=== PATIENT | female | born 1950 | race Asian ===

== ENCOUNTER 2020-02-03 13:06 | Emergency (ER) | payer MEDICARE ==
[~2020-02-03] VITALS: Ht 154.9 cm; Wt 59.0 kg
[2020-02-03 13:13] VITALS: BP 138/106
--- NOTE | 2020-02-03 13:13 | NUR ---
ED Nurse Note: pt brought in by son in law in to ED stating she went to accupuncture this morning and was told she had S/Sx of stroke and needs to go ED at 0900. pt noted with left sided facial droop. bilateral hand service learning coordinator (=). pt ambulatory. IV line established. pt connected to monitor. ermd at bedside
--- NOTE | 2020-02-03 13:15 | NUR ---
ED Nurse Note: PT taken to CT
--- NOTE | 2020-02-03 13:21 | Emergency Room Report ---
History of Present Illness General Chief Complaint: Stroke Symptoms Source: Patient, Family Member Present Illness HPI Disclaimer: Please note that this report is being documented using [employer] technology. This can lead to erroneous entry secondary to incorrect interpretation by the dictating instrument. HPI: 69-year-old female with no reported medical history resents for evaluation of weakness, facial droop concern for possible stroke. She awoke in her usual state of health this morning. Approximately 8 PM her son states that she fell without head injury or loss of consciousness. She was complaining of weakness on the left side of her body particularly left upper extremity. She was found to have facial droop and some slurred speech at that time. She denied any vision changes, headache, neck or back pain, chest pain, palpitations, nausea, vomiting, fever, chills recently. No history of hypertension, hyperlipidemia or CAD. States that the strength is returning to her lower extremities and upper extremity. Denies numbness or tingling. Facial droop persist. PMH: Denies PSH: Denies Allergies: Denies Social Hx: Denies Allergies: Coded Allergies: No Known Allergies (Unverified , 02/03/20) Patient History Last Menstrual Period: na Nursing Documentation-PMH Past Medical History: No Stated History Review of Systems All Other Systems: negative except mentioned in HPI Physical Exam Vital Signs Date Time Temp Pulse Resp B/P (MAP) Pulse Ox O2 Delivery O2 Flow Rate FiO2 02/03/20 13:11 98.1 156 21 138/106 (117) 98 Room Air General: Awake and alert, no acute distress HEENT: NC/AT. EOMI. PERRLA. Visual turk are full. No nystagmus. Significant facial droop on the left. Cardiovascular: Tachycardic with irregular regular rhythm. S1 and S2 normal. No murmur appreciated Resp: Normal work of breathing. No cough, wheezing or crackles appreciated Abdomen: Abdomen is soft, nondistended. Nontender Skin: Intact. No abrasions, laceration or rash over the exposed skin MSK: Normal tone and bulk. Moving all extremities. No obvious deformity. There is no drift in the upper or lower extremities bilaterally. Decreased manager software development strength in the left upper extremity. Neuro: Awake and alert. Mentating appropriately. Facial expression symmetrical. No dysarthria, no ataxia on [id number] or [id number] testing. Sensation to light touch is intact over the upper and lower extremities. The patient has intact speech with good repetition, comprehension. Fund of knowledge is full. No aphasia, no neglect. NIH: 2 Procedures Critical Care Time Critical Care Time Total critical care time: Approximately 65 minutes Due to a high probability of clinically significant, life threatening deterioration, the patient required the highest level of preparedness to intervene emergently and I personally spent this critical care time directly and personally managing the patient. This critical care time included obtaining a history, examining the patient, pulse oximetry, ordering and reviewing studies , ordering treatments, evaluating response to treatment and updating management plan as needed, frequent reassessment and discussion with other providers as well as arranging for ultimate disposition. This critical to care time was performed to assess and manage the high probability of life-threatening deterioration that could result in multiorgan failure. This critical care time is separate from the separately billable procedures and treating other patients. Medical Decision Making Diagnostic Impression: Primary Impression: CVA (cerebral vascular accident) Additional Impressions: Facial droop Rapid atrial fibrillation ER Course 69-year-old female presents for evaluation of left-sided weakness, facial droop and a fall earlier today. Concern for CVA at this time. She arrives with a night warehouse manager to those she has decreased manager software development strength in left upper extremity. Last known normal was 8 AM. She is outside the window for TPA. She also arrives with an irregular rhythm and rapid heart rate concerning for rapid atrial fibrillation. She has no history of this. Will send for stat CT, draw broad labs, EKG and arrange for admission. Laboratory Tests Test 02/03/20 13:17 White Blood Count 6.3 K/UL (4.8-10.8) Red Blood Count 4.23 M/UL (4.20-5.40) Hemoglobin 14.2 G/DL (12.0-16.0) Hematocrit 40.5 % (37.0-47.0) Mean Corpuscular Volume 96 FL (80-99) Mean Corpuscular Hemoglobin 33.7 PG (27.0-31.0) H Mean Corpuscular Hemoglobin Concent 35.2 G/DL (32.0-36.0) Red Cell Distribution Width 10.5 % (11.6-14.8) L Platelet Count 175 K/UL (150-450) Mean Platelet Volume 5.2 FL (6.5-10.1) L Neutrophils (%) (Auto) 69.8 % (45.0-75.0) Lymphocytes (%) (Auto) 23.5 % (20.0-45.0) Monocytes (%) (Auto) 5.5 % (1.0-10.0) Eosinophils (%) (Auto) 0.2 % (0.0-3.0) Basophils (%) (Auto) 0.9 % (0.0-2.0) Prothrombin Time 9.8 SEC (9.30-11.50) Prothrombin Time INR 0.9 (0.9-1.1) Activated Partial Thromboplast Time 26 SEC (23-33) Sodium Level 142 MMOL/L (136-145) Potassium Level 4.3 MMOL/L (3.5-5.1) Chloride Level 108 MMOL/L (98-107) H Carbon Dioxide Level 24 MMOL/L (21-32) Anion Gap 10 mmol/L (5-15) Blood Urea Nitrogen 19 mg/dL (7-18) H Creatinine 0.8 MG/DL (0.55-1.30) Estimate Glomerular Filtration Rate > 60 mL/min (>60) Glucose Level 105 MG/DL (74-106) Calcium Level 9.4 MG/DL (8.5-10.1) Total Bilirubin 0.6 MG/DL (0.2-1.0) Aspartate Amino Transferase (AST) 24 U/L (15-37) Alanine Aminotransferase (ALT) 22 U/L (12-78) Alkaline Phosphatase 99 U/L (46-116) Troponin I 0.000 ng/mL (0.000-0.056) Total Protein 8.0 G/DL (6.4-8.2) Albumin 3.6 G/DL (3.4-5.0) Globulin 4.4 g/dL Albumin/Globulin Ratio 0.8 (1.0-2.7) L Triglycerides Level 62 MG/DL (30-150) Cholesterol Level 239 MG/DL (< 200) H LDL Cholesterol 129 mg/dL (<100) H HDL Cholesterol 92 MG/DL (40-60) H Cholesterol/HDL Ratio 2.6 (3.3-4.4) L EKG Diagnostic Results EKG Time: 13:30 Rate: tachycardiac Other Impression Tachycardia with irregularly irregular rhythm concerning for atrial fibrillation. Normal axis. Rhythm Strip Diag. Results Rhythm Strip Time: 13:30 EP Interpretation: yes Rate: 160s CT/MRI/US Diagnostic Results CT/MRI/US Diagnostic Results : Impression Final Report EXAM: CT Head Without Intravenous Contrast CLINICAL HISTORY: CVA TECHNIQUE: Axial computed tomography images of the head/brain without intravenous contrast. CTDI is 53.4 mGy and DLP is 212 mGy-cm. One or more of the following dose reduction techniques were used: automated exposure control, adjustment of the mA and/or kV according to patient size, use of iterative reconstruction technique. COMPARISON: No relevant prior studies available. FINDINGS: Brain: No intracranial hemorrhage. Edematous/ischemic changes in the right basal ganglia, head of caudate and insular cortex. Ventricles: No ventriculomegaly. Bones/joints: No acute fracture. Soft tissues: Unremarkable. Vasculature: Dense segment of the right MCA in the sylvian fissure area suggesting thrombosis. Sinuses: No acute sinusitis. Mastoid air cells: No mastoid effusion. IMPRESSION: 1. Dense segment of the right MCA in the sylvian fissure area suggesting thrombosis. Edematous/ischemic changes in the right basal ganglia, head of caudate and insular cortex. 2. No intracranial hemorrhage. Radiologist: Michelle Victor M.D. Electronically Signed: 02/03/20 13:35 Study ready at 13:29 and initial results transmitted at 13:35 Communications: Clear Time Type Notes 02/03/20 13:39 Verify Receipt Verified receipt with Alisia FOLEY given to Peter TREJO on 02/02 13:39 (-08:00) Reevaluation Time: 13:53 Last Vital Signs Date Time Temp Pulse Resp B/P (MAP) Pulse Ox O2 Delivery O2 Flow Rate FiO2 02/03/20 13:11 98.1 156 21 138/106 (117) 98 Room Air Status: improved Reevaluation Impression Patient was given Cardizem with resolution of the tachycardia though remains in atrial fibrillation. Patient now states that she has been feeling palpitations intermittently for some time now. CT scan of the head concerning for acute stroke in the right MCA distribution with ischemic and edematous changes. While the patient is out of the window for TPA I discussed with [facility], Dr Bulic. Patient a candidate for endovascular procedure and/ or a tenecteplase trial. For this reason I am not giving aspirin. They are discussing with patient's son regarding consent over these procedures. Transfer team sent. Stable condition for transfer. Disposition: XFER SHT-TRM HOSP Condition: Serious Jas Green MD Feb 03, 2020 13:21
[2020-02-03 13:30] LABS: BASOPHILS % (AUTO) 0.9 % (0.0-2.0); EOSINOPHILS % (AUTO) 0.2 % (0.0-3.0); HEMATOCRIT 40.5 % (37.0-47.0); HEMOGLOBIN 14.2 G/DL (12.0-16.0); LYMPHOCYTES % (AUTO) 23.5 % (20.0-45.0); MEAN CORPUSCULAR VOLUME 96 FL (80-99); MONOCYTES % (AUTO) 5.5 % (1.0-10.0); NEUTROPHILS % (AUTO) 69.8 % (45.0-75.0); PLATELET COUNT 175 K/UL (150-450); RED BLOOD COUNT 4.23 M/UL (4.20-5.40); RED CELL DISTRIBUTION WIDTH 10.5 % (11.6-14.8); WHITE BLOOD COUNT 6.3 K/UL (4.8-10.8)
--- NOTE | 2020-02-03 13:30 | NUR ---
ED Nurse Note: Back from CT
[2020-02-03 13:36] LABS: INR 0.9 (0.9-1.1)
--- NOTE | 2020-02-03 13:36 | Diagnostic Imaging Report ---
EXAM: CT Head Without Intravenous Contrast CLINICAL HISTORY: CVA TECHNIQUE: Axial computed tomography images of the head/brain without intravenous contrast. CTDI is 53.4 mGy and DLP is 212 mGy-cm. One or more of the following dose reduction techniques were used: automated exposure control, adjustment of the mA and/or kV according to patient size, use of iterative reconstruction technique. COMPARISON: No relevant prior studies available. FINDINGS: Brain: No intracranial hemorrhage. Edematous/ischemic changes in the right basal ganglia, head of caudate and insular cortex. Ventricles: No ventriculomegaly. Bones/joints: No acute fracture. Soft tissues: Unremarkable. Vasculature: Dense segment of the right MCA in the sylvian fissure area suggesting thrombosis. Sinuses: No acute sinusitis. Mastoid air cells: No mastoid effusion. IMPRESSION: 1. Dense segment of the right MCA in the sylvian fissure area suggesting thrombosis. Edematous/ischemic changes in the right basal ganglia, head of caudate and insular cortex. 2. No intracranial hemorrhage. <MYCVCSECTION> Communications: 02/03/20 13:39 Verify Receipt Verified receipt with Alisia FOLEY given to Peter TREJO on 02/02 13:39 (-08:00)
[2020-02-03 13:39] LABS: ANION GAP 10 mmol/L (5-15); BLOOD UREA NITROGEN 19 mg/dL (7-18); CALCIUM 9.4 MG/DL (8.5-10.1); CARBON DIOXIDE 24 MMOL/L (21-32); CHLORIDE 108 MMOL/L (98-107); CREATININE 0.8 MG/DL (0.55-1.30); POTASSIUM 4.3 MMOL/L (3.5-5.1); SODIUM 142 MMOL/L (136-145)
[2020-02-03 13:44] LABS: ALANINE AMINOTRANSFERASE 22 U/L (12-78); ALBUMIN 3.6 G/DL (3.4-5.0); ALBUMIN/GLOBULIN RATIO 0.8 (1.0-2.7); ALKALINE PHOSPHATASE 99 U/L (46-116); ASPARTATE AMINO TRANSFERASE 24 U/L (15-37); BILIRUBIN,TOTAL 0.6 MG/DL (0.2-1.0); CHOLESTEROL 239 MG/DL (< 200); HDL CHOLESTEROL 92 MG/DL (40-60); TRIGLYCERIDES 62 MG/DL (30-150)
[2020-02-03] MEDS ORDERED: dilTIAZem HCl 25mg/5ml Inj IVP ONE ×2 (13:45→14:45)
--- NOTE | 2020-02-03 13:57 | NUR ---
patient has been accepted at [facility] by dr fam. patient will be accepted in neuro icu room 7101. for [phone]
--- NOTE | 2020-02-03 14:06 | NUR ---
report given to aileen avila at [facility] for ambulance 30 minites
[2020-02-03 15:15] VITALS: BP 128/70
== END 2020-02-03 15:15 | disposition short-term general hospital (02) ==
LOC: EMR 13:44
DX: I63.9 Cerebral infarction, unspecified (principal); I48.91 Unspecified atrial fibrillation
CPT/HCPCS: 36415; 70450; 80053; 80061; 82962; 84484; 85025; 85610; 85730; 93005; 96374; 96376; 99291